=== PATIENT | male | born 1935 | race Caucasian/White ===

== ENCOUNTER 2018-03-16 16:10 | Emergency (ER) | payer OTHER, MEDICARE ==
[2018-03-16] MEDS ORDERED: Morphine 2 MG/ML Syringe IVPUSH ONE ×2 (18:25→19:44)
[2018-03-16] MEDS ORDERED: Ondansetron 4 MG/2 ML SDV IVPUSH ONE (18:25)
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
[2018-03-16] MEDS ORDERED: Sodium Chloride 0.9% 10 ML Syringe FLUSH PRN (18:47)
[2018-03-16] MEDS ORDERED: Cyclobenzaprine 10 MG Tab PO ONE (20:22)
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
== END 2018-03-16 20:10 ==
LOC: FB.ED 16:10
DX: S72.141A Displaced intertrochanteric fracture of right femur, initial encounter for closed fracture (principal); S30.810A Abrasion of lower back and pelvis, initial encounter; I10 Essential (primary) hypertension; I25.2 Old myocardial infarction; Z95.1 Presence of aortocoronary bypass graft; Z79.899 Other long term (current) drug therapy; V49.3XXA Car occupant (driver) (passenger) injured in unspecified nontraffic accident, initial encounter; W22.11XA Striking against or struck by driver side automobile airbag, initial encounter; Y92.410 Unspecified street and highway as the place of occurrence of the external cause
CPT/HCPCS: 36415; 70450; 71250; 72125; 74176; 80053; 81001; 83880; 84484; 85025; 86140; 93005; 96374; 96375; 99285; J2270; J2405